=== PATIENT | male | born 1990 | race Caucasian/White ===

== ENCOUNTER 2018-03-08 07:56 | Emergency (ER) | payer SELFPAY ==
[2018-03-08 08:02] VITALS: BP 119/78
[2018-03-08] MEDS ORDERED: ONDANSETRON 4 MG TAB.RAPDIS PO ONE (08:19)
--- NOTE | 2018-03-08 08:21 | ER Document Report ---
ED General - General Chief Complaint: Vomiting/Diarrhea Stated Complaint: VOMITING AND DIARRHEA Time Seen by Provider: 03/08/18 08:09 TRAVEL OUTSIDE OF THE [place] IN LAST 30 DAYS: No - HPI Patient complains to provider of: Vomiting diarrhea Notes: Patient coming in for nausea vomiting diarrhea ongoing since Thursday. Patient states most of the symptoms have somewhat improved and mostly is requesting a work note to return to work. Patient states symptoms are exacerbated by food states he was rather sick contacts with similar symptoms. Denies any fevers chills denies any recent antibiotics. - Related Data Allergies/Adverse Reactions: No Known Allergies Allergy (Verified 03/08/18 08:22) Past Medical History - Social History Smoking Status: Unknown if Ever Smoked Family History: Reviewed & Not Pertinent Review of Systems - Review of Systems Constitutional: No symptoms reported EENT: No symptoms reported Cardiovascular: No symptoms reported Respiratory: No symptoms reported Gastrointestinal: Diarrhea, Nausea, Vomiting Genitourinary: No symptoms reported Male Genitourinary: No symptoms reported Musculoskeletal: No symptoms reported Skin: No symptoms reported Hematologic/Lymphatic: No symptoms reported Neurological/Psychological: No symptoms reported -: Yes All other systems reviewed and negative Physical Exam - Vital signs Vitals: Temp Pulse Resp BP Pulse Ox 98.4 F 77 16 119/78 97 03/08/18 08:01 03/08/18 08:01 03/08/18 08:01 03/08/18 08:01 03/08/18 08:01 Interpretation: Normal - General General appearance: Appears well, Alert - HEENT Head: Normocephalic, Atraumatic Eyes: Normal Pupils: PERRL - Respiratory Respiratory status: No respiratory distress Chest status: Nontender Breath sounds: Normal Chest palpation: Normal - Cardiovascular Rhythm: Regular Heart sounds: Normal auscultation Murmur: No - Abdominal Inspection: Normal Distension: No distension Bowel sounds: Normal Tenderness: Nontender Organomegaly: No organomegaly - Back Back: Normal, Nontender - Extremities General upper extremity: Normal inspection, Nontender, Normal color, Normal ROM , Normal temperature General lower extremity: Normal inspection, Nontender, Normal color, Normal ROM , Normal temperature, Normal weight bearing. No: Monique's sign - Neurological Neuro grossly intact: Yes Cognition: Normal Orientation: AAOx4 Jj Coma Scale Eye Opening: Spontaneous Jj Coma Scale Verbal: Oriented Jj Coma Scale Motor: Obeys Commands [place] Coma Scale Total: 15 Speech: Normal Motor strength normal: LUE, RUE, LLE, RLE Sensory: Normal - Psychological Associated symptoms: Normal affect, Normal mood - Skin Skin Temperature: Warm Skin Moisture: Dry Skin Color: Normal Course - Vital Signs Vital signs: Temp Pulse Resp BP Pulse Ox 98.4 F 77 16 119/78 97 03/08/18 08:01 03/08/18 08:01 03/08/18 08:01 03/08/18 08:01 03/08/18 08:01 Discharge - Discharge Clinical Impression: Nausea vomiting and diarrhea Condition: Good Disposition: HOME, SELF-CARE Instructions: Gastroenteritis (adult) ([facility]) Additional Instructions: Your physical examination today does not reveal any significant pathology for your symptoms. More likely have a viral gastroenteritis causing nausea vomiting and diarrhea. If he continued to have diarrhea I would recommend using [id number] Imodium as directed. I will give you 2 medications for nausea and vomiting one Zofran the other one Reglan. He may try 1 he may not need the other. Patient to drink plenty fluids to stay hydrated return to ER symptoms worsen. Prescriptions: Metoclopramide HCl [Reglan] 5 mg PO Q6 #30 tablet Ondansetron [Zofran Odt] 4 mg PO Q6 PRN #30 tab.rapdis PRN Reason: For Nausea/Vomiting Forms: Return to Work
== END 2018-03-08 08:32 | disposition home or self-care (01) ==
LOC: ER 07:56
DX: R11.2 Nausea with vomiting, unspecified (principal); R19.7 Diarrhea, unspecified
CPT/HCPCS: 99283; S0119